=== PATIENT | female | born 1975 | race Caucasian/White ===

== ENCOUNTER 2024-05-31 04:09 | Inpatient (IN) | payer SELFPAY ==
[~2024-05-31] VITALS: Ht 134.6 cm; Wt 81.2 kg
[2024-05-31 04:19] VITALS: BP_SYST 127; PULSE 121; RESP 16; TEMP 99.5; O2SAT 96
[2024-05-31] MEDS: NACL 0.9% 2,000 ML IV ONE (05:03)
[2024-05-31] MEDS: KETOROLAC TROMETHAMINE 15 MG VIAL IVP ONE (05:05)
[2024-05-31] MEDS: ONDANSETRON HCL 4 MG/2 ML VIAL IVP ONE (05:06)
[2024-05-31 05:52] LABS: BILIRUBIN,DIRECT 0.1 mg/dL (0.0-0.3); CALCIUM 9.1 mg/dL (8.4-11.0); CREATININE 1.28 mg/dL (0.55-1.30); POTASSIUM 3.5 mmol/L (3.5-5.1); TOTAL BILIRUBIN 0.3 mg/dL (0.0-1.0); TOTAL PROTEIN, SERUM 7.5 g/dL (6.4-8.3)
[2024-05-31 05:57] LABS: BASOPHILS % (AUTO) 0.2 % (0.0-2.0); EOSINOPHILS % (AUTO) 0.2 % (0.0-4.0); HEMATOCRIT 35.3 % (36-48); LYMPHOCYTES # (AUTO) 1.1 K/uL (1.0-5.5); LYMPHOCYTES % (AUTO) 6.6 % (20.5-51.5); MEAN CORPUSCULAR HEMOGLOBIN 22 pg (27-31); MEAN CORPUSCULAR HGB CONC 31 % (32-36); MEAN CORPUSCULAR VOLUME 72 fL (79.0-98.0); MONOCYTES # (AUTO) 1.7 K/uL (0.0-1.0); MONOCYTES % (AUTO) 10.1 % (1.7-9.3); NEUTROPHILS # (AUTO) 13.6 K/uL (1.8-7.7); NEUTROPHILS % (AUTO) 82.9 % (40.0-70.0); PLATELET COUNT (AUTO) 419 K/uL (130-430); RED BLOOD CELL COUNT(AUTO) 4.93 MIL/uL (4.2-6.2); RED CELL DISTRIBUTION WIDTH 18.5 % (9.0-15.0); WHITE BLOOD COUNT (AUTO) 16.4 K/uL (4.8-10.8)
[2024-05-31 06:03] LABS: BILIRUBIN,URINE NEGATIVE (NEGATIVE); BLOOD, URINE 3+ (NEGATIVE); CLARITY/URINE SL CLOUDY (CLEAR); COLOR,URINE YELLOW (YELLOW); GLUCOSE,URINE NEGATIVE (NEGATIVE); KETONES,URINE NEGATIVE (NEGATIVE); LEUKOCYTE ESTERASE ,URINE 2+ (NEGATIVE); NITRITE, URINE POSITIVE (NEGATIVE); PH,URINE 6.5 (5.0-8.0); PROTEIN URINE 2+ (NEGATIVE); UROBILINOGEN,URINE 0.2 (0.2-1.0)
[2024-05-31] MEDS: cefTRIAXone 1 GM IVPB PREMIX 50 ML IV ONE (06:04)
[2024-05-31 06:20] LABS: BACTERIA,URINE MANY /HPF (None Seen); WBC,URINE >100 /HPF (0-3)
[2024-05-31] MEDS ORDERED: LORazepam 2 MG/ML VIAL IVP PRN (09:30)
[2024-05-31] MEDS ORDERED: DOCUSATE SODIUM 100 MG CAPSULE PO PRN (09:30)
[2024-05-31] MEDS ORDERED: ACETAMINOPHEN 325 MG TABLET PO PRN (09:30)
[2024-05-31] MEDS ORDERED: ONDANSETRON HCL 4 MG/2 ML VIAL IVP PRN (09:30)
[2024-05-31] MEDS ORDERED: POTASSIUM CHLORIDE 20 MEQ TABLET.ER PO PRN (09:30)
[2024-05-31] MEDS ORDERED: MUPIROCIN 2% TOPICAL OINTMENT 22 GM NS PRN (09:30)
[2024-05-31] MEDS: NACL 0.9% 1,000 ML IV SCH (09:30)
[2024-05-31] MEDS ORDERED: MAGNESIUM SULFATE 50 ML IV PRN (09:30)
[2024-05-31 11:43] VITALS: BP_SYST 143; PULSE 96; RESP 18; TEMP 99.1
[2024-05-31] MEDS: CEFTRIAXONE SOD 1 GM/ D5W 50 ML IV SCH (11:53)
[2024-05-31 12:10] VITALS: O2SAT 99
[2024-05-31 13:39] LABS: PROTHROMBIN TIME 10.9 SECS (9.5-12.5)
[2024-05-31] MEDS ORDERED: SUMAtriptan SUCCINATE 50 MG TABLET PO PRN (13:45)
[2024-05-31] MEDS: SUMAtriptan SUCCINATE 50 MG TABLET PO PRN (13:48)
[2024-05-31 15:14] LABS: ALBUMIN 2.6 g/dL (3.4-4.8); BILIRUBIN,DIRECT 0.1 mg/dL (0.0-0.3); TOTAL BILIRUBIN 0.2 mg/dL (0.0-1.0)
[2024-05-31 16:00] VITALS: BP_SYST 118; PULSE 89; RESP 20; TEMP 98.9; O2SAT 98
[2024-05-31] MEDS: MORPHINE 2 MG/ML INJ. SYRINGE IVP PRN (16:51)
[2024-05-31 20:00] VITALS: BP_SYST 129; PULSE 111; RESP 18; TEMP 98.8; O2SAT 97
[2024-06-01] VITALS: BP_SYST 131; PULSE 102; RESP 18; TEMP 99; O2SAT 97
[2024-06-01] MEDS: ZOLPIDEM TARTRATE 5 MG TABLET PO PRN (00:11)
[2024-06-01] MEDS: MORPHINE 2 MG/ML INJ. SYRINGE IVP PRN (00:12)
[2024-06-01] MEDS ORDERED: cefTRIAXone 1 GM IVPB PREMIX 50 ML IV SCH (06:00)
[2024-06-01 07:22] LABS: BASOPHILS % (AUTO) 0.3 % (0.0-2.0); EOSINOPHILS # (AUTO) 0.1 K/uL (0.0-0.4); EOSINOPHILS % (AUTO) 0.5 % (0.0-4.0); HEMATOCRIT 31.9 % (36-48); HEMOGLOBIN 9.9 g/dL (12.0-16.0); LYMPHOCYTES # (AUTO) 1.6 K/uL (1.0-5.5); LYMPHOCYTES % (AUTO) 13.6 % (20.5-51.5); MEAN CORPUSCULAR HEMOGLOBIN 22 pg (27-31); MEAN CORPUSCULAR HGB CONC 31 % (32-36); MEAN CORPUSCULAR VOLUME 71 fL (79.0-98.0); MONOCYTES # (AUTO) 1.3 K/uL (0.0-1.0); MONOCYTES % (AUTO) 11.5 % (1.7-9.3); NEUTROPHILS # (AUTO) 8.5 K/uL (1.8-7.7); NEUTROPHILS % (AUTO) 74.1 % (40.0-70.0); PLATELET COUNT (AUTO) 391 K/uL (130-430); RED BLOOD CELL COUNT(AUTO) 4.48 MIL/uL (4.2-6.2); RED CELL DISTRIBUTION WIDTH 18.8 % (9.0-15.0); WHITE BLOOD COUNT (AUTO) 11.4 K/uL (4.8-10.8)
[2024-06-01 07:55] LABS: CALCIUM 8.2 mg/dL (8.4-11.0); CREATININE 1.07 mg/dL (0.55-1.30); POTASSIUM 3.8 mmol/L (3.5-5.1)
[2024-06-01 08:05] VITALS: BP_SYST 129; PULSE 95; RESP 15; TEMP 97.7; O2SAT 98
[2024-06-01 08:30] VITALS: O2SAT 98
[2024-06-01] MEDS: FERROUS SULFATE 300 MG/5 ML UDC GT ONE (11:48)
[2024-06-01 12:58] VITALS: BP_SYST 136; PULSE 89; RESP 16; TEMP 97.9; O2SAT 99
[2024-06-01 13:42] VITALS: BP_SYST 136; PULSE 89; RESP 16; TEMP 97.9; O2SAT 99
[2024-06-01] MEDS ORDERED: LEVO-62 PO (14:38)
[2024-06-01] MEDS ORDERED: IMI50 PO (14:48)
[2024-06-01] MEDS ORDERED: FERROUS SULFATE 300 MG/5 ML UDC GT SCH (21:00)
== END 2024-06-01 15:15 | disposition home or self-care (01) | DRG 872 ==
LOC: SED 04:09 → EDBD 04:09 → SMU 09:27
PROVIDERS: ADMIT General Practice; ATTEND General Practice
DX: A41.9 Sepsis, unspecified organism (principal); N12 Tubulo-interstitial nephritis, not specified as acute or chronic; N13.6 Pyonephrosis; E44.0 Moderate protein-calorie malnutrition; Z68.41 Body mass index [BMI] 40.0-44.9, adult; E87.1 Hypo-osmolality and hyponatremia; D50.9 Iron deficiency anemia, unspecified; R74.01 Elevation of levels of liver transaminase levels; Z79.899 Other long term (current) drug therapy; Z88.8 Allergy status to other drugs, medicaments and biological substances
CPT/HCPCS: 36415; 76700; 80048; 80076; 81000; 81001; 81015; 83037; 83605; 83690; 83735; 85025; 85610; 85730; 87040; 87086; 93005; 96365; 99285; J0696; J1885; J2060; J2270; J2405; J7060